=== PATIENT | female | born 1965 | race Caucasian/White ===

== ENCOUNTER → 2017-07-28 13:45 | Outpatient (CLI) | payer BC, SELFPAY | PROVIDERS: Visit Provider Allergy & Immunology | DX: T50.905A Adverse effect of unspecified drugs, medicaments and biological substances, initial encounter (principal) | CPT/HCPCS: 36415 ==

== ENCOUNTER → 2018-02-16 15:37 | Outpatient (CLI) | payer BC, SELFPAY ==
--- NOTE | 2018-02-16 15:40 | MM_ITS ---
MM Dig screening mamm BI w/CAD ORDERING PHYSICIAN : Arcadio Zuniga MD PATIENT AGE: 52 years GENDER: Female COMPARISON: June 2008, January 2013, March 2011, August 2014 INDICATION: ITS.REASON: SCREENING no hormones. No new complaints. Noncontributory family history. TECHNIQUE: Standard CC and MLO images were obtained. R2 CAD reviewed. FINDINGS: Moderate density breast bilaterally with no dominant mass nor suspicious mass. No architecture distortion.. RIGHT BREAST:. No significant new findings Stable breast the mild asymmetric density medial right breast is unchanged since 2011., 2012 LEFT BREAST:. Asymmetric density at the far lateral left breast is unchanged. On final review there are a few tiny punctate most likely benign calcifications at superior/medial left breast... These are not highlighted by CAD.. Although these are most likely tiny benign calcifications they are new since 2014 and thus would suggest follow-up left mammogram in June/2018 months to confirm relative stable. IMPRESSION: . Left breast.. A few tiny benign punctate at superior left breast. Appear benign, but since new 2014 suggest follow-up 5-6 months to confirm Right breast. Stable. Unremarkable follow-up in one year. BI-RADS Category: 3 Probably Benign Finding Short Term Follow-up RECOMMENDED FOLLOW-UP: 6M 6 MONTH FOLLOW-UP (A letter has been sent to the patient regarding results of the study.)
== END ==
PROVIDERS: PCP Family Medicine; Visit Provider Obstetrics & Gynecology
DX: Z12.31 Encounter for screening mammogram for malignant neoplasm of breast (principal)
CPT/HCPCS: 77067

== ENCOUNTER → 2018-02-19 09:46 | Outpatient (CLI) | payer BC, SELFPAY ==
--- NOTE | 2018-02-19 09:48 | XR_ITS ---
XR DEXA axial skeleton HISTORY: ITS.REASON: OSTEOPOROSIS ORDERING PHYSICIAN: rAcadio Zuniga MD PATIENT AGE: 52 years COMPARISON: 08/30/2014 FINDINGS: The BMD measured at the AP spine L1 L4 is 0.813 g/cm squared with a T score of -3.1. This is considered osteoporotic according to the World Health Organization criteria. Fracture risk is high. The mean hip density has a T score of -2.8 consistent with osteoporosis. The L-spine density has increased by 2.7% and the hip density has increased by 1.2%. IMPRESSION: Osteoporosis with high fracture risk. Treatment suggested. Recommend follow-up exam January 2019
== END ==
PROVIDERS: PCP Family Medicine; Visit Provider Obstetrics & Gynecology
DX: M81.0 Age-related osteoporosis without current pathological fracture (principal)
CPT/HCPCS: 77080

== ENCOUNTER 2018-03-08 10:03 | Outpatient (CLI) | payer BC, SELFPAY ==
[2018-03-08 10:03] VITALS: BP 153/94; PULSE 68; RESP 20; TEMP 36.9; O2SAT 98
[2018-03-08 10:25] VITALS: BP 152/90; PULSE 78; RESP 20; TEMP 36.9; O2SAT 96
== END 2018-03-08 10:25 | disposition home or self-care (01) ==
LOC: INF 10:03
PROVIDERS: Visit Provider Obstetrics & Gynecology
DX: M81.0 Age-related osteoporosis without current pathological fracture (principal)
CPT/HCPCS: 96372; J0897

== ENCOUNTER → 2020-04-06 07:49 | Outpatient (CLI) | payer BC, SELFPAY ==
--- NOTE | 2020-04-06 07:59 | CT_ITS ---
Procedure: CT ABDOMEN PELVIS WO CON Referring Doctor: Dominguez Loredo Patient Age:54Y CLINICAL INDICATION: HEMATURIA,RECURRENT UTI No previous COMPARISON: No exams were available for comparison TECHNIQUE: No oral nor IV contrast utilized Helical axial images obtained with sagittal and coronal reformats. All CT scans at the facility use one or more dose reduction, viz: automated exposure control, ma/kV adjustment per patient size (including targeted exams where dose is matched to indication, i.e. head), or iterative reconstruction technique. FINDINGS: Lower thorax: No acute finding minimal scarring at the medial aspect of the lung bases posteriorly suggestion of minor chronic changes in hyperexpansion, 2heart normal size ABDOMEN: Lack of oral and IV contrast due slight decrease sensitivity on today's exam particular evaluating solid organs Liver: Numerous scattered granulomatous calcifications.. No mass lesion evident the on today's noncontrast study. The the the the. No biliary ductal dilatation the Gallbladder: Normal size GB.. Suspect minimal sludge posterior gallbladder. Difficult to exclude some tiny non radiopaque stones. CBD unremarkable Pancreas: No masses or peripancreatic fluid collections. Spleen: Normal size with numerous granulomatous calcifications from Adrenals: unremarkable the the the the the -------- tract------ Kidneys/ureters: . Numerous punctate small calculi at both kidneys. Right kidney.--severalless than 3 mm calculus at the midportion right kidney best seen on coronal image 37 no obstructive uropathy. Likely 2 faint 1 mm tiny developing calculus at lower pole on coronal image 33 Left kidney-numerous small punctate nonobstructive the calculi: Pair of 2.5 mm calculi anteriorly at the upper pole right kidney with another posteriorly upper pole. 2 cm cyst lower pole left kidney most likely benign cyst ultrasound could additionally support and confirm . I suspect there also some small parapelvic cyst midportion left kidney.-Largest measures 1 cm on coronal slice 33 (I believe these are located the too medial to be dilated calices and thus are more likely small parapelvic cyst) the renal pelvis is not dilated and I see no calculi nor dilatation along the course of the collecting system/nor left ureter. The the the the the ureters appear normal in caliber and unremarkable bilaterally. Pelvis-urinary bladder with no calculi or masses.. Modest size uterus of remains, anteverted. No significant adnexal masses. There may be some calcification along the left lobe into region; no free fluid pelvis evident. -----the GI tract-------- Possible small sliding hiatal hernia Stomach.-Upper normal wall thickness proximal stomach most likely reflects lack of distension; otherwise satisfactory. Duodenal loop unremarkable Small bowel-slight increased fluid is seen throughout the distal small bowel particularly towards the pelvis. Generous fluid with terminal ileum upper normal size noted as well.. But no inflammation in this region the Appendix but not well visualized but I believe what is appendix appears overall satisfactory.-however if this should become a concern clinically with progressive RLQ pain then follow-up with oral and IV contrast could better visualize appendix. Large bowel-increased solid stool seen throughout the colon most notable and pronounced at right colon and transverse colon of which. Appearance suggest mild/moderate constipation. Slight radiopaque material material throughout stool at transverse and descending colon . Note generous volume low lying mobile cecum which resides slightly to the right of midline... There are few developing diverticuli seen a p
== END ==
PROVIDERS: PCP Family Medicine; Visit Provider Family Medicine
DX: R31.9 Hematuria, unspecified (principal); N39.0 Urinary tract infection, site not specified
CPT/HCPCS: 74176

== ENCOUNTER → 2020-10-05 10:19 | Outpatient (CLI) | payer BC, SELFPAY ==
--- NOTE | 2020-10-05 10:22 | MM_ITS ---
PROCEDURE INFORMATION: Exam: MG Screening 3D Mammography Exam date and time: 10/05/2020 10:22 AM Age: 55 years old Clinical indication: Encounter for screening mammogram for malignant neoplasm of breast TECHNIQUE: Imaging protocol: Screening tomosynthesis and 2D mammography including computer-aided detection (CAD) when performed. COMPARISON: 1. MG SCBI MM Dig screening mamm BI w/CAD 02/16/2018 3:54 PM 2. MG DMDXUAVL DIG MAMM-DX UNI ADD VIEWS-LT 09/13/2014 2:58 PM 3. MG DMSB DIG MAMM-SCREEN FERN 08/30/2014 4:26 PM FINDINGS: MAMMOGRAPHY: Breast composition: The breasts are heterogeneously dense, which may obscure small masses. Mass: No new suspicious masses. Architectural distortion: No suspicious distortion. Calcifications: No suspicious calcifications. Asymmetric density: None. Skin thickening: None. Axillary adenopathy: None. IMPRESSION: No mammographic evidence of malignancy. Annual screening is recommended unless otherwise clinically indicated. ASSESSMENT: BI-RADS Category 1: Negative
== END ==
PROVIDERS: PCP Family Medicine; Visit Provider Family Medicine
DX: Z12.31 Encounter for screening mammogram for malignant neoplasm of breast (principal)
CPT/HCPCS: 77063; 77067

== ENCOUNTER → 2021-03-05 08:59 | Outpatient (CLI) | payer BC, SELFPAY ==
--- NOTE | 2021-03-05 08:59 | XR_ITS ---
PROCEDURE: XR DEXA AXIAL SKELETON CLINICAL HISTORY: osteoporosis COMPARISON: CR DEXAAX XR DEXA axial skeleton from 02/19/2018 FINDINGS: The right hip BMD is 0.579 with a T-score of -3.0. The left hip BMD is 0.490 with a T-score of -3.7. The lumbar spine BMD is 0.728 with a T-score of -2.9. Previously the lowest density was in the lumbar spine with a T-score of -3.1 IMPRESSION: This patient is considered osteoporotic according to the World Health Organization criteria. Fracture risk is high. Treatment is advised. Based on these results a follow-up exam is recommended in 1 year. Dictated by: Sina Rosario MD 03/06/2021 11:43 Sina Rosario MD in [place] 03/06/2021 11:43
== END ==
PROVIDERS: PCP Family Medicine; Visit Provider Obstetrics & Gynecology
DX: M81.0 Age-related osteoporosis without current pathological fracture (principal)
CPT/HCPCS: 77080

== ENCOUNTER → 2022-05-02 21:30 | Outpatient (CLI) | payer BC, SELFPAY | PROVIDERS: PCP Student in an Organized Health Care Education/Training Program; Visit Provider Student in an Organized Health Care Education/Training Program | DX: N39.0 Urinary tract infection, site not specified (principal) | CPT/HCPCS: 87086; 87088 ==

== ENCOUNTER 2022-09-02 16:49 | Emergency (ER) | payer BC, SELFPAY ==
[2022-09-02 17:00] VITALS: BP 129/83; PULSE 74; RESP 18; TEMP 36.8; O2SAT 99; BMI 18.4
[2022-09-02 17:09] LABS: Color,Urine Orange (Yellow)
[2022-09-02 17:10] LABS: Apearance,Urine Cloudy (Clear); Bilirubin,Urine 1+ (Negative); Blood, Urine 3+ (Negative); Glucose,Urine (UA) 100 (Negative); Ketones,Urine TRACE (Negative); Protein,Urine 1+ (Negative); Urobilinogen,Urine 1 EU/dl (0.2)
[2022-09-02 17:11] LABS: UTC Leukocyte Esterase,Urine 3+ (Negative); UTC Nitrate,Urine Positive (Negative)
--- NOTE | 2022-09-02 17:30 | EXP.UTC ---
Discharge Plan Disposition Patient Disposition: Home, Self-Care Condition: Good Prescriptions Prescriptions: New phenazopyridine [Pyridium] 200 mg tablet 200 mg PO Q8H 2 Days Qty: 6 0RF ciprofloxacin HCl [Cipro] 500 mg tablet 500 mg PO BID 7 Days Qty: 14 0RF No Action bupropion HCl 150 mg tablet sustained-release 12 hr 150 mg PO lorazepam 1 mg tablet 1 mg PO All Day Allergy (cetirizine) 10 mg capsule 10 mg PO DAILY PRN cyclobenzaprine 5 mg tablet 5 mg PO HS lidocaine 5 % ointment 1 applic TOPICAL TID Qty: 240 2RF ciprofloxacin HCl 250 mg tablet 250 mg PO BID Qty: 14 0RF fluticasone propionate [Allergy Relief (fluticasone)] 50 mcg/actuation spray,suspension 1 spray intranasal DAILY Qty: 16 1RF Rx Instructions: administer into each nostril fluconazole 150 mg tablet 150 mg PO Q3D Qty: 2 0RF Rx Instructions: may repeat second dose 72 hrs after first dose if symptoms persist Referrals Follow up/Referrals: Dominguez Loredo MD [Primary Care Provider] - See instructions Activity Restrictions/Add. Instructions Additional Instructions/Restrictions: Drink plenty of fluids. Take tylenol for pain or fever. Take the medications as directed. Follow up with your regular doctor. GO TO THE ER FOR ANY WORSENING SYMPTOMS The pyridium will make your urine turn orange, this is an expected side effect. It will stain your clothes if it comes into contact with them. We will culture the urine. That will tell what bacteria is causing your infection and which antibiotics will treat it best. Sometimes the first antibiotic we prescribe turns out to not work against different bacteria. So, make sure you follow up within 3 days if you are not getting better. Clinical Impressions Clinical Impression: UTI (urinary tract infection) Instructions Patient Instructions: Urinary Tract Infection, DI for Urinary Tract Infection (UTI) Discharge ED Provider: Loki Silver [facility] General Stated complaint: poss kidney infection Mode of Arrival: Ambulatory Source of Information: Patient Limitations: No Limitations Time Seen by Provider: 09/02/22 17:30 Description of Symptoms (Recalled from Triage Doc. by RN): Patient reports burning with urination since Thursday. HEENT Symptoms (Recalled from RN notes): No Resp Symptoms (Recalled from RN notes): No Skin Symptoms (Recalled from RN notes): No MS Symptoms (Recalled from RN notes): No Functional Status (Recalled from RN notes): wnl History of Present Illness Provider Complaint: she states that for the past 3 days she has had dysuria, low back pain, and urinary frequency. Related Data Home Medications Medication Instructions Recorded Confirmed bupropion HCl 150 mg tablet,12 hr 150 mg PO 11/01/20 05/02/22 sustained-release lorazepam 1 mg tablet 1 mg PO 11/01/20 05/02/22 cetirizine 10 mg capsule (All Day 10 mg PO DAILY PRN 02/01/21 05/02/22 Allergy (cetirizine)) cyclobenzaprine 5 mg tablet 5 mg PO HS 02/01/21 05/02/22 Previous Rx's Medication Instructions Recorded lidocaine 5 % topical ointment 1 applic topical TID #240 grams 02/22/21 ciprofloxacin HCl 250 mg tablet 250 mg PO BID #14 tabs 05/02/22 fluconazole 150 mg tablet 150 mg PO Q3D 2 doses #2 tabs 05/02/22 fluticasone propionate 50 1 spray intranasal DAILY #16 grams 05/02/22 mcg/actuation nasal spray,suspension (Allergy Relief (fluticasone)) ciprofloxacin HCl 500 mg tablet 500 mg PO BID 7 days #14 tabs 09/02/22 (Cipro) phenazopyridine 200 mg tablet 200 mg PO Q8H 2 days #6 tabs 09/02/22 (Pyridium) Allergies Allergy/AdvReac Type Severity Reaction Status Date / Time nitrofurantoin Allergy Verified 05/02/22 13:17 [From Macrobid] sulfamethoxazole Allergy Verified 05/02/22 13:17 [From Sulfamethoxazole-Trimethoprim] trimethoprim Allergy Verified 05/02/22 13:17 [From Sulfamethoxazole-Trimeth
[2022-09-02 17:43] VITALS: BP 129/83; PULSE 74; RESP 18; TEMP 36.8; O2SAT 99
== END 2022-09-02 17:43 | disposition home or self-care (01) ==
PROVIDERS: Emergency Provider Nurse Practitioner Family; PCP Family Medicine
DX: N39.0 Urinary tract infection, site not specified (principal); M54.59 Other low back pain; F17.210 Nicotine dependence, cigarettes, uncomplicated
CPT/HCPCS: 81003; 87086; 87186; 99204; 99212; G0463

== ENCOUNTER 2023-05-08 12:48 | Outpatient (CLI) | payer BC, SELFPAY ==
--- NOTE | 2023-05-08 13:12 | US_ITS ---
PROCEDURE: US TRANSVAGINAL CLINICAL INDICATION: UTERINE LEIOMYOMA COMPARISON: No exams were available for comparison FINDINGS: Transvaginal sonographic images of the pelvis were obtained. UTERUS: 4.4cm x 3.4cmx 2.0cm anteverted with a combined endometrial thickness of 14.7mm. Within the uterine cavity is a collection of fluid with internal echoes. The fluid measures 2.5 cm x 1.4 cm x 3.0 cm. The endometrium itself looks extremely thin. LEFT OVARY: Not visualized RIGHT OVARY: Not visualized Both ovaries are not seen. There is no fluid in the cul-de-sac. IMPRESSION: 1. Anteverted small uterus with a thin endometrium. No fibroids visualized. 2. Within the uterine cavity is a collection of fluid measuring 2.5 x 1.4 x 3.0 cm. There are internal echoes within this fluid. 3. Unclear whether the fluid is blood or possibly mucus. 4. Ovaries could not be seen today. Likely remaining ovary is atrophic. 5. No fluid in the cul-de-sac. 6. I spoke to Nanci in Dr. Kim's office. Dictated by: Cb Cooney MD 05/11/2023 09:09 Cb Cooney MD in [place] 05/11/2023 09:09
--- NOTE | 2023-05-08 13:13 | US_ITS ---
FINAL REPORT CLINICAL HISTORY: LT RENAL CYST COMPARISON: None FINDINGS: RENAL ULTRASOUND: The right kidney measures 10.2 cm in length. No focal mass, hydronephrosis, or perinephric fluid is noted in the right kidney The left kidney measures 10.2 cm in length. No hydronephrosis is identified. There is a 2.5 cm hypoechoic focus in the left kidney, that appears to be septated, likely is a septated cyst. There is another hypoechoic focus in the left kidney measuring 1.9 cm in size. These were both seen on the prior CT of 2020. There is a probable 5 mm nonobstructing stone in the left collecting system. IMPRESSION: Unremarkable right kidney. 2 hypoechoic likely cysts in the left kidney, 1 of which appears to be septated, and a probable 5 mm nonobstructing stone in the left collecting system. If indicated renal mass protocol CT examination is suggested. Reviewed, Interpreted and Dictated by Ghassan Gotti III, MD Transcribed by Ros aIsela He Authenticated and . [facility]
== END 2023-05-08 23:59 ==
LOC: RAD 12:48
PROVIDERS: PCP Family Medicine; Visit Provider Physician Assistant
DX: N28.1 Cyst of kidney, acquired (principal); D25.9 Leiomyoma of uterus, unspecified
CPT/HCPCS: 76770; 76830

== ENCOUNTER 2023-07-10 12:50 | Outpatient (CLI) | payer BC, SELFPAY ==
--- NOTE | 2023-07-10 12:51 | US_ITS ---
PROCEDURE: US TRANSVAGINAL CLINICAL INDICATION: abnormal fluid in uterus COMPARISON: CT CT ABDOMEN PELVIS WO CON from 04/06/2020 US US TRANSVAGINAL from 05/08/2023 FINDINGS: Transvaginal sonographic images of the pelvis were obtained. UTERUS: 4.4cm x 3.5cmx 1.8cm anteverted uterus with a thin endometrium. There is a collection of fluid within the endometrial cavity measuring 2.6 cm x 1.3 cm x 3.3 cm. This has not changed appreciably in size. There continue to be some internal echoes within the fluid. LEFT OVARY: Not visualized RIGHT OVARY: Not visualized Both ovaries are not visualized. There is no fluid in the cul-de-sac. IMPRESSION: 1. Anteverted uterus small in size and normal in shape. The endometrium is thin. 2. Within the endometrial cavity there continues to be a collection of fluid. It measures up to 3.3 cm in size. There has been no appreciable change in the size of the fluid collection since her last ultrasound 05/08/2023. Possibly mucus or old blood. 3. The ovaries were not visualized today. She has had one ovary surgically removed. 4. No fluid in the cul-de-sac. Dictated by: Cb Cooney MD 07/11/2023 08:17 Cb Cooney MD in [place] 07/11/2023 08:17
== END 2023-07-10 23:59 | disposition home or self-care (01) ==
LOC: RAD 12:51
PROVIDERS: PCP Family Medicine; Visit Provider Obstetrics & Gynecology
DX: R93.89 Abnormal findings on diagnostic imaging of other specified body structures (principal)
CPT/HCPCS: 76830

== ENCOUNTER 2023-07-24 09:41 | Outpatient (CLI) | payer BC, SELFPAY ==
--- NOTE | 2023-07-24 | CT_ITS ---
FINAL REPORT CLINICAL HISTORY: .COMPLEX RENAL CYST COMPARISON: None FINDINGS: CT ABDOMEN WITH AND WITHOUT CONTRAST: The lung bases are unremarkable in appearance. The liver, spleen, pancreas, and adrenal glands are unremarkable. There is a left mid renal mass, which measures up to 2.4 cm in size, without definite enhancement after contrast administration. There is bilateral nephrolithiasis with tiny nonobstructing bilateral renal stones present. The gallbladder is contracted. IMPRESSION: Left mid renal mass, without definite enhancement after contrast administration, has an appearance consistent with a simple cyst. Lateral nephrolithiasis without obstruction. Contracted gallbladder. Reviewed, Interpreted and Dictated by Mayra Evangelista MD Transcribed by Rosa Isela He Authenticated and [facility]
[2023-07-24 10:20] LABS: Blood Urea Nitrogen 15 mg/dl (7-17); Estimated Glomerular Filt Rate 64 ml/min (>60); GFR (African American) 77 ML/MIN (>60)
[2023-07-24] MEDS: SODIUM CHLORIDE 0.9% 10ML SYR (RAD ONLY) 10 ML IV (10:58)
[2023-07-24] MEDS: IOPAMIDOL-370 (76%);100ML BOTTLE 75 ML IV (10:58)
== END 2023-07-24 23:59 | disposition home or self-care (01) ==
LOC: RAD 09:42
PROVIDERS: PCP Family Medicine; Visit Provider Urology
DX: N28.1 Cyst of kidney, acquired (principal)
CPT/HCPCS: 36415; 74170; 82565; 84520; Q9967

== ENCOUNTER 2024-03-03 08:50 | Outpatient (CLI) | payer BC, SELFPAY ==
--- NOTE | 2024-03-03 08:55 | XR_ITS ---
FINAL REPORT TECHNIQUE: Bone densitometry calculations of the lumbar spine and left hip were obtained. CLINICAL HISTORY: SCREENING COMPARISON: None FINDINGS: Using L1-4, the bone mineral density of the spine is 0.7-2 g/cm2, corresponding to T-score of -3.0. Using the left hip, the bone mineral density of the femoral neck is 0.519 g/cm2, corresponding to a T-score of -3.0. Using the right hip, the bone mineral density of the femoral neck is 0.627 g/cm?, resulting in a T-score of -2.6. NOTE: T-score: Standard deviation compared with peak bone mass of young adult mean. *Following the recommendations of the International Society of Bone Densitometry, classification of hip BMD is based on the lower of two T-scores; total hip or femoral neck. IMPRESSION: Osteoporosis: Lowest T-score is at or below -2.5. This patient's T-score meets the World Health Organization criteria for osteoporosis. Reviewed, Interpreted and Dictated by Ghassan Gotti III, MD Transcribed by Rosa Isela He Authenticated and [facility]
--- NOTE | 2024-03-03 08:56 | MM_ITS ---
PROCEDURE INFORMATION: Exam: MG Bilateral Screening 3D Mammography Exam date and time: 03/03/2024 8:58 AM Age: 58 years old Clinical indication: Screening. No family history of breast cancer. TECHNIQUE: Imaging protocol: Bilateral Screening tomosynthesis and 2D mammography including computer-aided detection (CAD) when performed. COMPARISON: 1. MG MM DIG SCREENING MAMM BI W/CAD 10/05/2020 10:29 AM 2. MG SCBI MM Dig screening mamm BI w/CAD 02/16/2018 3:54 PM 3. MG DMDXUAVL DIG MAMM-DX UNI ADD VIEWS-LT 09/13/2014 2:58 PM 4. MG DMSB DIG MAMM-SCREEN FERN 08/30/2014 4:26 PM FINDINGS: MAMMOGRAPHY: Breast composition: The breasts are heterogeneously dense, which may obscure small masses. Mass: No suspicious mass. Architectural distortion: None. Calcifications: No suspicious calcifications. Asymmetric density: None. Skin thickening: None. Axillary adenopathy: None. IMPRESSION: No mammographic evidence of malignancy. Annual screening is recommended unless otherwise clinically indicated. ASSESSMENT: BI-RADS Category 1: Negative.
== END 2024-03-03 23:59 | disposition home or self-care (01) ==
LOC: RAD 08:51
PROVIDERS: PCP Physician Assistant; Visit Provider Physician Assistant
DX: Z78.0 Asymptomatic menopausal state (principal); Z12.31 Encounter for screening mammogram for malignant neoplasm of breast
CPT/HCPCS: 77063; 77067; 77080

== ENCOUNTER 2024-11-11 13:48 | Outpatient (CLI) | payer BC, SELFPAY ==
--- OUTSIDE RECORDS SUMMARY | 2024-04-15 05:15 | XMS_ITS ---
Author Organization [facility] Address [address] [facility] [address] [facility] [address] [place] [id number] Care Team Providers Care Web Developer Name Role Phone Gordon Pelaez Primary Care Provider [phone] Yissel Reece Unavailable [phone] REASON FOR VISIT labwork, Needs labs, low dose chest CT, colon cancer screening, & shingles vaccine Encounters Encounter Location Date Provider Diagnosis [facility] [address] [facility] [address] [facility] [address] [place] [id number] 04/15/2024 Yissel Mendiola Plan Of Treatment Next Appt Details Provider Name:Yissel Stearns y, 11/11/2024 01:30:00 PM, [address] [facility] [address] [facility], [address], [place], [phone], Progress Notes * Nancy VASQUEZeDOB:1965 (59 yo F)Acc No.[id number]:04/15/2024 Progress Notes Patient: Ligia MARVIN Provider: ROSE MARIE Awan :1965 A ge:58 Y S ex:Female Date:04/15/2024 Address:[address] [id number] Pcp:Gordon Pelaez Subjective: * Chief Complaints: * 1 . Labwork. 2. Needs labs, low dose chest CT, colon cancer screening, & shingles vaccine. * Medical History: Objective: * Vitals: Assessment: Plan: * Treatment: * Images: Billing Information: * Visit Code: * Procedure Codes: * Electronic signature of ROSE MARIE Martino on 11/11/2024 at 01:55 PM EDT Sign off status: Pending * Provider: ROSE MARIE Awan Date: 0 04/15/2024 Generated for Cooper james/Robbin/Willie on: 0 11/11/2024 01:55 PM EDT
--- OUTSIDE RECORDS SUMMARY | 2024-04-29 09:15 | XMS_ITS ---
Author Organization [facility] Address [address] [place] [id number] Care Team Providers Care Heel Sewer Name Role Phone Gordon Pelaez Primary Care Provider Yissel Mendiola Unavailable [phone] Allergies Allergen (clinical drug ingredient) Drug/Non Drug Allergy documented on EMR Reaction Allergy Type Onset Date Status sulfamethoxazole / trimethoprim Bactrim DS Unknown Drug Allergy Active Claritin-D 12 Hour Unknown Drug Allergy Active nitrofurantoin Macrodantin Unknown Drug Allergy Active dextromethorphan / guaifenesin Mucinex DM Unknown Drug Allergy Active Penicillin rash Drug Allergy Active Results Component Value Reference Range Notes Urinalysis - Inhouse Reviewed date:05/01/2024 10:23:31 PM Interpretation: Performing Lab: Notes/Report: Color/Clarity yellow clear Leuk 1+ Nitrite neg Urobili 3.2 Protein neg pH 6.0 Blood trace intact Sp. Gr. 1.020 Ketone neg Bili neg Gluc neg P-Culture, Urine Reviewed date:05/03/2024 10:24:02 AM Interpretation:sensitive Performing Lab: Notes/Report: Test performed by [employer] [employer] [address] [place] [address] , [address], [place] [address] Jason Shi MD, Associate School Psychologist CLIA: [id number] Specimen Source Urine - Void Culture, Urine See Below See Microbiol ogy Report Serratia marcescens 50,000-100,000 CFU/m l Serratia marcescens Sensitivity Panel See Below _ Organism [place] Antibiotic INTERP _ Amikacin S Ampicillin R Aztreonam S Cefepime S Cefoxitin R Ceftazidime S Ceftriaxone S Cefuroxime R Ciprofloxacin S Ertapenem S Gentamicin S Imipenem S Levofloxacin S Meropenem S Nitrofurantoin R Piperacillin/Tazo S Tobramycin S S=SUSCEPTIBLE I=INTERMEDIATE R=RESISTANT Reason For Referral Diagnosis 1 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 Referred Provider Specialty Dermatology General Notes Yissel Mendiola 2024 10:18:25 PM > Would like to see Angie Odom Brynn 05/02/2024 8:34:47 AM > faxed to Dr. Greco's office Referral Priority Routine REASON FOR VISIT spots on ear Medications Medication SIG (Take, Route, Frequency, Duration) Notes Start Date End Date Status Fluconazole 150 MG 1 tablet Orally once daily 04/29/2024 Active Cetirizine HCl 10 MG 1 tab(s) orally onc e a day; Duration: 90 days Active Calcium 600 + Minerals 600-200 MG-UNIT 1 tab(s) orally twice a day Active amLODIPine Besy-Benazepril HCl 5-20 MG TAKE 1 CAPSULE BY MOUTH ONCE DAILY; Duration: 90 days Active Wellbutrin SR 150 MG 1 tab(s) orally onc e daily; Duration: 30 day(s) Active Cipro 250 MG 1 tablet Orally ever y 12 hrs; Duration: 7 days 04/29/2024 Active LORazepam 1 MG 1 tab(s) orally thre e times a day as needed 04/04/2024 Active Alendronate Sodium 70 MG 1 tab(s) orally once a week Active Fluticasone Propionate 50 MCG/ACT USE 1 SPRAY DAILY (ADMINISTER INTO EACH NOSTRIL); Duration: 60 Active Social History Tobacco Use: Social History Observation Description Date Details (start date - stop date) Former Smoker NA - NA CURRENT TOBACCO USE: Question Answer Notes Are you a: former smoker Problems Problem Type SNOMED Code ICD Code Onset Dates Problem Status W/U Status Risk Notes Problem Allergic rhinitis (32957539) Non-seasonal allergic rhinitis, unspecified trigger (J30.89) Active confirmed Problem Abnormal transvaginal ultrasound (R93.89) Active confirmed Vital Signs Blood pressure systolic 116 mm Hg 04/29/19 25 Blood pressure diastolic 70 mm Hg 025 Heart Rate 52 /min 04/29/2024 Height 63 in 04/29/2024 Weight 108.0 lbs 04/29/2024 BMI 19.13 kg/m2 04/29/2024 Encounters Encounter Location Date Provider Diagnosis [facility] [address] [facility] [address] [place] [address], [place] [phone] 04/29/2024 Yissel Mendiola Dysuria R30.0 ; Non-seasonal allergic rhinitis, unspecified trigger J30.89 ; Neoplasm of uncertain behavior of skin D48.5 ; Abnormal transvaginal ultrasound R93.89 and Primary hypertension I10 Assessments Encounter Date Diagnosis (ICD Code) Assessment Notes Treatment Notes Treatment Clinical Notes Section Notes 04/29/2024 Dysuria (ICD-10 - R30.0) 04/29/2024 Non-seasonal allergic rhinitis, unspecified trigger (ICD-10 - J30.89) 04/29/2024 Neoplasm of uncertain behavior of skin (ICD-10 - D48.5) 04/29/2024 Abnormal transvaginal ultrasound (ICD-10 - R93.89) Reviewed images and Dr. Jacques's note. Patient has an abnormal fluid collection on the ultrasound. Dr. Jacques recommended a D&C. The patient states she was unable to f/u with the abnormal U/S because she ended up having to have more imaging done on some masses in the kidney's and was seeing Dr. Alarcon. She is going to go back and discuss with Dr. Jacques. 04/29/2024 Primary hypertension (ICD-10 - I10) 04/29/2024 Other She is not due a refill on the lorazepam yet and will call back hoe operator to the date it is due. Plan Of Treatment Medication Medication Name Sig Start Date Stop Date Notes Fluconazole 150 MG 1 tablet Orally once daily 04/29/2024 Cetirizine HCl 10 MG 1 tab(s) orally onc e a day; Duration: 90 days amLODIPine Besy-Benazepril H Cl 5-20 MG TAKE 1 CAPSULE BY MOUTH ONCE DAILY; Duration: 90 days Cipro 250 MG 1 tablet Orally ever y 12 hrs; Duration: 7 days 04/29/2024 Treatment Notes Assessment Notes Abnormal transvaginal ultrasound Reviewe d images and Dr. Jacques's note. Patient has an abnormal fluid collection on the ultrasound. Dr. Jacques recommended a D&C. The patient states she was unable to f/u with the abnormal U/S because she ended up having to have more imaging done on some masses in the kidney's and was seeing Dr. Alarcon. She is going to go back and discuss with Dr. Jacques. Other She is not due a ref ill on the lorazepam yet and will call back hoe operator to the date it is due. Referrals Referral Date Details 05/01/2024 05/01/2024, . Dermat ology Next Appt Details Follow Up: via phone to repo rt test results, Reason: Provider Name:Yissel Orin Jinny y, 11/11/2024 01:30:00 PM, [address], [address], [place], [place], [id number], Progress Notes * Suzanne VASQUEZOB:1965 (59 yo F)Acc No.[id number]:04/29/2024 Progress Notes Patient: Ligia MARVIN Provider: ROSE MARIE Awan :1965 A ge:58 Y S ex:Female Date:04/29/2024 Address:[place], [id number] Pcp:Gordon Pelaez Subjective: * Chief Complaints: * 1 . Spots on ear. * HPI: D ermatology: 58 year old female presents with c/o Dry Skin P t sts she has some dry spots on both of her ears and sts they do hurt. Pt sts when laying on her pillow it is painful as well. Pt is unsure as to what it is and would like them looked at. H PI: c/o Patient is here today for P t sts she does need refills on some of her medications. Lorazepam, Cetirizine, and BP medicine. Pt sts that last year she saw Dr. Jacques and would like to discuss vaginal ultrasounds from then. Pt sts there was something that showed up on the ultrasound but she has not been back to dr. Jacques and she never had the D&C that was recommended. U rology: c/o frequent urination. c/o urgency. c/o Urine Odor?on and off . Denies : burning sensation. L ower back: c/o Low Back Pain. * ROS: D ERMATOLOGY: no R alex. n o H damian. G ASTROENTEROLOGY: no N ausea. n o V omiting. n o D iarrhea.? U ROLOGY: no D ifficulty urinating. n o B lood in urine. * Medical History: A llergic rhinitis, Anxiety, osteoporosis, treated with Prolia, followed by BODY DESIGNER, Calcium Deficiency, 15 pack year smoking history as of 2015, Skin Cancer - Basal Cell Carcinoma dx Dec 2016, Plantar wart, Declines all immunizations: 01/2023. * Surgical History: A ppendectomy , Ovary Removed - 2000, Basal Cell Carcinoma Removed - left breast Dec 2016, SCC removed right cheek 05/23/2022. * Family History: F ather: alive. M other: alive, Stroke. 2 sister(s) - healthy. . * Social History: C URRENT TOBACCO USE A re you a: f ormer smoker. C affeine: no. Exercise: yes, walk. Marital Status: . Alcohol: Yes, occasional. Sexually active: yes. * Medications: T aking Calcium 600 + Minerals 600-200 MG-UNIT Tablet 1 tab(s) orally twice a day , Taking Wellbutrin SR 150 MG Tablet Extended Release 12 Hour 1 tab(s) orally once daily , Taking Alendronate Sodium 70 MG Tablet 1 tab(s) orally once a week , Taking Fluticasone Propionate 50 MCG/ACT Suspension USE 1 SPRAY DAILY (ADMINISTER INTO EACH NOSTRIL) , Taking Cetirizine HCl 10 MG Tablet 1 tab(s) orally once a day , Taking amLODIPine Besy-Benazepril HCl 5-20 MG Capsule TAKE 1 CAPSULE BY MOUTH ONCE DAILY , Taking LORazepam 1 MG Tablet 1 tab(s) orally three times a day as needed , Medication List reviewed and reconciled with the patient * Allergies: P enicillin: rash, Claritin-D 12 Hour, Mucinex DM, Bactrim DS, Macrodantin. Objective: * Vitals: W t:108.0, Temp:97.4, BP:116/70, HR:52, O2 Sat:99% on RA, Nurse:ASHLEY, Ht: 63, BMI:19.13. * Examination: G eneral Examination: General Appearance: N AD. H EENT: u nremarkable.?Oral cavity: n o lesions, mucosa moist and WNL, no erythema. N barbara: s upple, no lymphadenopathy. C hest: n ormal shape and expansion. H eart: R SR. L ungs: c lear to auscultation. A bdomen: bowel sounds present, soft and nontender, no organomegaly or masses, no guarding or rigidity. N eurologic Exam: I ntact, gait normal. S kin: bilateral ears with erythematous scaly lesions, tender to palpation, n onhealing. P eripheral pulses: n ormal (2+) bilaterally. E xtremities: n o leg edema. Assessment: * Assessment: 1. D ysuria - R30.0 (Primary) 2 . N on-seasonal allergic rhinitis, unspecified trigger - J30.89 3 . N eoplasm of uncertain behavior of skin - D48.5 ? S pecify :bilateral ears 4 . A bnormal transvaginal ultrasound - R93.89 5 . P rimary hypertension - I10 Plan: * Treatment: Value Reference Range C ulture, Urine See Below - * S pecimen Source Urine - Void - * S ensitivity Panel See Below - * S erratia marcescens 50,000-100,000 CFU/ml Serratia marcescens - * Nanci Keen 05/03/2024 9:30: 06 AM > pt started on ciproCrowYissel onofre S 05/03/2024 10:23:56 AM > see TE ?LAB: Urinalysis - Inhouse (Collection Date & Time - 04/29/2024)* Value Reference Range C olor/Clarity yellow clear * L euk 1+ * N itrite neg * U robili 3.2 * P rotein neg * p H 6.0 * B lood trace intact * S p. Gr. 1.020 * K etone neg * B ugo neg * G sun neg * Chely Stover 04/29/2024 1:18:1 2 PM > Provider reviewed results while patient in office. 2.?Non-seasonal allergic rhinitis, unspecified trigger? Refill Cetirizine HCl Tablet, 10 MG, 1 tab(s), orally, once a day, 90 days, 90 Tablet, Refills 3. ?3.?Neoplasm of uncertain behavior of skin? Referral To:. Dermatology??Dermatology ?Reason: 4.?Abnormal transvaginal ultrasound? Notes: Reviewed images and Dr. Jacques's note. Patient has an abnormal fluid collection on the ultrasound. Dr. Jacques recommended a D&C. The patient states she was unable to f/u with the abnormal U/S because she ended up having to have more imaging done on some masses in the kidney's and was seeing Dr. Alarcon. She is going to go back and discuss with Dr. Jacques.??5.?Primary hypertension? Refill amLODIPine Besy-Benazepril HCl Capsule, 5-20 MG, TAKE 1 CAPSULE BY MOUTH ONCE DAILY, 90 days, 90 Capsule, Refills 1.??6.?Others? Notes: She is not due a refill on the lorazepam yet and will call back hoe operator to the date it is due.?? * Procedure Codes: 9 [address]60 [place], [address] Urinalysis, no micro, 3074F SYST BP LT 130 MM HG, 3078F DIAST BP < 80 MM HG * Follow Up: v ia phone to report test results * Images: Billing Information: * Visit Code: 55058 Office Visit, Est Pt., Level 4. * Procedure Codes: [address] [place]. [address] Urinalysis, no micro. 3074F SYST BP LT 130 MM HG. 3078F DIAST BP < 80 MM HG. * Electronic signature of ROSE MARIE Martino on 11/11/2024 at 01:55 PM EDT Sign off status: Pending * Provider: ROSE MARIE Awan Date: 0 04/29/2024 Generated for Dialloi erika/Robbin/eTransmitting on: 0 11/11/2024 01:55 PM EDT History and Physical Notes * HPI (History of Present Illness) Category Sub-Category Detail Notes Category Not es Dermatology Dry Skin Pt sts she has s ome dry spots on both of her ears and sts they do hurt. Pt sts when laying on her pillow it is painful as well. Pt is unsure as to what it is and would like them looked at Lower back Low Back Pain Urology frequent urination burning sensation urgency Urine Odor on and off HPI Patient is here today for Pt sts she does need refills on some of her medications. Lorazepam, Cetirizine, and BP medicine. Pt sts that last year she saw Dr. Jacques and would like to discuss vaginal ultrasounds from then. Pt sts there was something that showed up on the ultrasound but she has not been back to dr. Jacques and she never had the D&C that was recommended Examination Category Sub-Category Detail Notes Category Not es General Examination HEENT: unremarkable Heart: RSR Lungs: clear to auscultatio n Abdomen: bowel sounds present , soft and nontender, no organomegaly or masses, no guarding or rigidity Extremities: no leg edema General Appearance: NAD Skin: bilateral ears with erythematous scaly lesions, tender to palpation, nonhealing Neurologic Exam: Intact, gait normal Neck: supple, no lymphaden opathy Oral cavity: no lesions, mucosa m oist and WNL, no erythema Peripheral pulses: normal (2+) bilatera lly Chest: normal shape and exp ansion Consultation Request Notes Referral Date Referring Provider Referred Provider Not es 05/01/2024 Yissel Mendiola Dermatology, .
--- NOTE | 2024-11-11 13:53 | XR_ITS ---
FINAL REPORT CLINICAL HISTORY: ATTN: 1ST, 4TH AND 5TH MTP JOINTS FINDINGS: LEFT FOOT Three views of the left foot demonstrate no acute fracture or dislocation. The visualized joint spaces are normally aligned. The soft tissues are unremarkable. IMPRESSION: No acute bony abnormality. Reviewed, Interpreted and Dictated by Álvaro Lizama MD Transcribed by Anastacia Cervantes Authenticated and [facility]
--- OUTSIDE RECORDS SUMMARY | 2024-11-11 13:55 | XMS_ITS | Patient Health Record ---
[facility] Address [address] [place] [id number] Care Team Providers Care Petroleum Refinery Operator Name Role Phone Benigno Gordon Primary Care Provider Jarocho Loredo Unavailable [phone] Yissel Mendiola Unavailable [phone] Allergies Allergen (clinical drug ingredient) Drug/Non Drug [...] Interpretation:sensitive Performing Lab: Notes/Report: Test performed by [facility] [address] [place] [address] , [address], [place] [address] Jason Shi MD, Customer Service And Sales Consultant CLIA: [id number] Specimen Source Urine - Void Culture, Urine [...] n behavior of skin (D48.5) [facility] Referring Provider First Name Yissel Referring Provider Last Name Maury Referring Provider Speciality Physician Fruit Peeler Referred Provider Dermatology, . Referred Provider Specialty Dermatology General Notes Yissel Mendiola 2024 10:18:25 PM > Would like to see Angie Odom Brynn 05/02/2024 8:34:47 AM > faxed to Dr. Greco's office Referral Priority Routine Medications Medication SIG (Take, Route, Frequency, Duration) Notes Start Date End Date Status Cipro 250 MG 1 tablet Orally ever y 12 hrs; Duration: 7 days 04/29/2024 Active Fluconazole 150 MG 1 tablet Orally once daily 04/29/2024 Active Alendronate Sodium 70 MG 1 tab(s) orally once a week Active Fluticasone Propionate 50 MCG/ACT USE 1 SPRAY DAILY (ADMINISTER INTO EACH NOSTRIL); Duration: 60 Active Calcium 600 + Minerals 600-200 MG-UNIT 1 tab(s) orally twice a day Active Wellbutrin SR 150 MG 1 tab(s) orally onc e daily; Duration: 30 day(s) Active LORazepam 1 MG 1 tab(s) orally thre e times a day as needed 09/14/2024 Active amLODIPine Besy-Benazepril HCl 5-20 MG 1 capsule Orally daily; Duration: 90 days Active Cetirizine HCl 10 MG 1 tab(s) orally onc e a day; Duration: 90 days Active Immunizations Vaccine Route Administration Date Status Comme nts COVID 19 Pfizer Unknown 01/17/2021 Administered COVID 19 Pfizer Unknown 02/07/2021 Administered Hepatitis A (adult) Unknown 03/09/2018 Administered Tetanus Tdap-Adacel (over 7yrs) IM Intramuscular 02/03/2023 Administered Social History Tobacco Use: Social History Observation Description Date Details (start date - stop date) Former Smoker NA - NA CURRENT TOBACCO USE: Question Answer Notes Are you a: former smoker Problems Problem Type SNOMED Code ICD Code Onset Dates Problem Status W/U Status Risk Notes Problem Anxiety (23069383) Anxiety (F41.9) Active confirmed Problem Age-related osteoporosis (101400210) Age-related osteoporosis without current pathological fracture (M81.0) Active confirmed Problem Osteoporosis (83852967) Osteoporosis (M81.0) Active confirmed Problem Allergic rhinitis (82124526) Non-seasonal allergic rhinitis, unspecified trigger (J30.89) Active confirmed Problem Primary hypertension (14833713) Primary hypertension (I10) Active confirmed Problem Abnormal transvaginal ultrasound (R93.89) Active confirmed Vital Signs Heart Rate 66 /min 11/11/2024 Blood pressure diastolic 68 mm Hg 11/11/2024 Height 63 in 11/11/2024 Blood pressure systolic 122 mm Hg 11/11/2024 Weight 105.8 lbs 11/11/2024 BMI 18.74 kg/m2 11/11/2024 Encounters Encounter Location Date Provider Diagnosis [facility] [address] [facility] [address] [place], [place] [phone] 04/29/2024 Yissel Crowdy Dysuria R30.0 ; Non-seasonal allergic rhinitis, unspecified trigger J30.89 ; Neoplasm of uncertain behavior of skin D48.5 ; Abnormal transvaginal ultrasound R93.89 and Primary hypertension I10 [facility] [address] [place], [place] [id number] 11/11/2024 Yissel Mendiola Injury of left foot, initial encounter S99.922A [facility] [address] [place], [place] [id number] 03/11/2024 Yissel Crowdy [facility] [address] [place], [place] [id number] 04/04/2024 Gordon [place] Anxiety F41.9 [facility] [address] [place], [place] [id number] 05/03/2024 Yissel Mendiola [facility] [address] [place], [place] [id number] 05/13/2024 R Kevin Gertrude Anxiety F41.9 [facility] [address] [place], [place] [id number] 09/14/2024 R Kevin Gertrude Anxiety F41.9 [facility] [address] [place], [place] [id number] 10/03/2024 Gordon [place] Primary hypertension I10 Assessments Encounter Date Diagnosis (ICD Code) Assessment Notes Treatment Notes Treatment Clinical Notes Section Notes 04/04/2024 Anxiety (ICD-10 - F41.9) 04/29/2024 Dysuria (ICD-10 - R30.0) 04/29/2024 Non-seasonal allergic rhinitis, unspecified trigger (ICD-10 - J30.89) 05/13/2024 Anxiety (ICD-10 - F41.9) 09/14/2024 Anxiety (ICD-10 - F41.9) 10/03/2024 Primary hypertension (ICD-10 - I10) 11/11/2024 Injury of left foot, initial encounter (ICD-10 - S99.922A) 04/29/2024 Neoplasm of uncertain behavior of skin [...] on the lorazepam yet and will call play back operator to the date it is due. Plan Of Treatment Pending Test Test Name Order Date X ray : Foot, left 11/11/2024 Next Appt Details Provider Name:Yissel tam, 11/11/2024 01:30:00 PM, [address], [address], [place], [place], [id number], Insurance Providers Payer Name Payer Address Payer Phone Subscriber Number Group Number Insured Name Patient Relationship to Insured Coverage Start Date Coverage End Date [employer] [employer] [address] [place] [address] [id number] Ligia Ribera Self - patient is the insured Medical (General) History Medical History History ICD Code allergic rhinitis anxiety osteoporosis, treated with Prolia, follo wed by CONTRACT ADMINISTRATION MANAGER Calcium Deficiency 15 pack year smoking history as of 2015 Skin Cancer - Basal Cell Carcinoma dx [place] t 2017 Plantar wart B07.0 Declines all immunizations: 01/2023 Surgical History Surgery Date(Month/Year) Appendectomy Ovary Removed - 2000 Basal Cell Carcinoma Removed - left reinaldo st Dec 2016 SCC removed right cheek 05/23/2022
== END 2024-11-11 23:59 | disposition home or self-care (01) ==
PROVIDERS: PCP Physician Assistant; Visit Provider Physician Assistant
DX: S99.922A Unspecified injury of left foot, initial encounter (principal)
CPT/HCPCS: 73630